=== PATIENT | male | born 1955 | race Caucasian/White ===

== ENCOUNTER 2017-05-23 11:33 | Day surgery (SDC) | payer OTHER ==
--- NOTE | 2017-05-23 13:26 | Operative Note ---
Colonoscopy ([place]) Procedure date: 05/23/17 Date of : 57 Procedure:Colonoscopy Colonoscopy with cold biopsies Indications: Mr. Car is a 61-year-old gentleman who is here for initial screening colonoscopy. The patient does state that since his nursing home in February 2017, his bowel movements are looser. He does have some excessive wiping. He reports no abdominal pain, weight loss, rectal bleeding or family history of colon cancer. Performing Provider: Irish Galeas MD Referrring Provider: Sathya Cuadra M.D. Sedation: Fentanyl 100 mg IV/Versed 7 mg IV Procedure: Prior to the procedure, a history and physical exam was performed, and patient medications and allergies were reviewed. The risks and benefits of the procedure and the sedation options and risks were discussed with the patient. All questions were answered and informed consent was obtained. Patient identification and proposed procedure were verified by the physician and the nurse. The patient was placed in a left lateral decubitus position. Throughout the procedure, the patient's blood pressure, pulse, and oxygen saturations were monitored continuously. Findings: On digital rectal examination there was normal rectal tone. There were no external hemorrhoids. The prostate was smooth and soft but there was some firmness along the LEFT lower margin of the prostate with possible prostate nodule in this location. The colonoscope was introduced through the anal canal to the rectum and advanced to the cecum. The ileocecal valve and appendiceal orifice were identified. The scope was advanced a short distance into the ileum which appeared grossly normal. The scope was then withdrawn into the colon. There appeared to be some lymphoid nodular hyperplasia or lymphoid aggregates that were biopsied in the cecum. The remaining cecum, ascending and transverse colon and mucosa were grossly normal. There were scattered diverticuli throughout the descending and sigmoid colon (LEFT colon). The rectum itself was normal. Upon retroflexion within the rectum there were grade 1 internal hemorrhoids. Impressions: 1. Left-sided diverticulosis 2. Grade 1 internal hemorrhoids Recommendations: I will follow up the biopsies to exclude lymphoid aggregates but also to exclude microscopic colitis. Will encourage fiber bulk supplementation, dietary measures and probiotic therapy. The patient will not require surveillance colonoscopy again for 10 years by ACS guidelines. Complications: None EBL (ml): 0 at 1326
[2017-05-23 16:39] VITALS: BP 105/57
== END 2017-05-23 14:47 | disposition home or self-care (01) ==
LOC: SDC 11:33
PROVIDERS: Internal Medicine Gastroenterology
PROC: 0DBH8ZX Excision of Cecum, Via Natural or Artificial Opening Endoscopic, Diagnostic (ICD-10-PCS; principal; 2017-05-23 12:30)
DX: Z12.11 Encounter for screening for malignant neoplasm of colon (principal); K57.30 Diverticulosis of large intestine without perforation or abscess without bleeding; K64.0 First degree hemorrhoids
CPT/HCPCS: G0103